=== PATIENT | male | born 1980 | race Caucasian/White ===

== ENCOUNTER 2020-07-08 15:31 | Outpatient (CLI) | payer OTHER, SELFPAY ==
--- NOTE | 2020-07-08 | MR_ITS ---
WS: [id number] MRI LEFT KNEE HISTORY: LEFT ANTERIOR KNEE PAIN COMPARISON: 06/20/2020 Anterior cruciate ligament: Small amount of increased signal within the fibers of the ACL but no full -thickness tear. Posterior cruciate ligament: Intact. Medial collateral ligament: Intact. Posterior lateral corner structures: Intact. Medial menisci: Mild intrasubstance degeneration in the posterior horn. No tear. Lateral meniscus: Complex signal in the anterior horn extends to the inferior and superior articular surfaces. Extensor mechanism: Distal quadriceps tendon and patellar tendons are intact. Fluid and soft tissue: Small suprapatellar joint effusion. No Fuentes's cyst. Osseous and articular structures: Patellofemoral compartment: Normal. Medial compartment: Lateral compartment: Very small superficial tear in the cartilage involving the femoral condyle weigh tbearing surface. Numerous small osteochondral type defects in the posterior lateral femoral condyle. Several cartilage defects involving the femoral condyle. MR/MR knee LT wo con* [id number] IMPRESSION: 1. Numerous, multifocal osteochondral defects involving the lateral posterior femoral condyle. 2. Minimally complex tear in the anterior horn lateral meniscus. 3. Small amount of increased fluid and ACL may represent a mild ligamentous in jury but there is no full-thickness tear.
== END 2020-07-08 15:32 | disposition home or self-care (01) ==
PROVIDERS: PCP Family Medicine; Visit Provider Nurse Practitioner Family
DX: S83.272A Complex tear of lateral meniscus, current injury, left knee, initial encounter (principal); X58.XXXA Exposure to other specified factors, initial encounter
CPT/HCPCS: 73721

== ENCOUNTER → 2020-08-10 07:52 | Outpatient (BNVA) | payer OTHER, SELFPAY | PROVIDERS: PCP Family Medicine; Visit Provider Family Medicine | DX: Z13.6 Encounter for screening for cardiovascular disorders (principal) | CPT/HCPCS: 80053; 80061; 82728; 83550; 85025 ==

== ENCOUNTER 2021-12-06 13:32 | Outpatient (CLI) | payer OTHER, SELFPAY ==
--- NOTE | 2021-12-06 13:41 | XR_ITS ---
WS: [id number] XR hand LT 2V [id number] REASON FOR EXAM: ganglion cyst FINDINGS: Joint spaces of the left hand are intact and well preserved. No focal bony abnormality. No soft tissue abnormality. XR/XR hand LT 2V [id number] IMPRESSION: No significant abnormality.
--- NOTE | 2021-12-06 13:41 | XR_ITS ---
WS: [id number] XR hand RT 2V [id number] REASON FOR EXAM: ganglion cyst FINDINGS: Joint spaces of the right hand are intact and well preserved. No focal bony abnormality. No soft tissue abnormality. XR/XR hand RT 2V [id number] IMPRESSION: No abnormality identified.
== END 2021-12-06 13:33 | disposition home or self-care (01) ==
LOC: RAD 13:35
PROVIDERS: PCP Family Medicine; Visit Provider Family Medicine
DX: M67.441 Ganglion, right hand (principal); M67.442 Ganglion, left hand
CPT/HCPCS: 73120

== ENCOUNTER → 2022-05-14 09:55 | Outpatient (BNVA) | payer OTHER, SELFPAY | PROVIDERS: PCP Family Medicine; Visit Provider Specialist | DX: M67.442 Ganglion, left hand (principal); M67.441 Ganglion, right hand | CPT/HCPCS: 73130 ==

== ENCOUNTER → 2022-07-18 08:10 | Outpatient (BNVA) | payer OTHER, SELFPAY | PROVIDERS: PCP Family Medicine; Visit Provider Family Medicine | DX: Z00.00 Encounter for general adult medical examination without abnormal findings (principal); Z13.6 Encounter for screening for cardiovascular disorders | CPT/HCPCS: 80053; 80061; 85025 ==

== ENCOUNTER 2022-09-05 09:57 | Outpatient (CLI) | payer OTHER, SELFPAY ==
--- NOTE | 2022-09-05 10:15 | US_ITS ---
WS: [id number] RIGHT UPPER QUADRANT ULTRASOUND HISTORY: RUQ pain COMPARISON: None available. Liver: 13.4 cm in length. Normal size liver and echogenicity. No bile duct dilatation or mass. Portal Vein: Normal hepatopetal flow with monophasic waveform. Gallbladder: Normally distended gallbladder with no stones or wall thickening. CBD: 0.6 cm Pancreas: Normal size and echogenicity. Right kidney: 10.5 cm in length. Normal size and echogenicity. No hydronephrosis or mass. Aorta and IVC: Unremarkable abdominal aorta and IVC. No ascites. US/US gall bladder [id number] IMPRESSION: Normal RIGHT upper quadrant ultrasound.
== END 2022-09-05 09:58 | disposition home or self-care (01) ==
PROVIDERS: PCP Family Medicine; Visit Provider Family Medicine
DX: R10.11 Right upper quadrant pain (principal)
CPT/HCPCS: 76705

== ENCOUNTER → 2023-04-30 12:16 | Outpatient (BNVA) | payer OTHER, SELFPAY | PROVIDERS: PCP Family Medicine; Visit Provider Nurse Practitioner Family | DX: J06.9 Acute upper respiratory infection, unspecified (principal); J10.1 Influenza due to other identified influenza virus with other respiratory manifestations | CPT/HCPCS: 87400 ==